=== PATIENT | female | born 1940 | race Two or more races ===

== ENCOUNTER 2022-09-06 22:08 | Inpatient (IN) | payer MEDICARE, OTHER ==
[~2022-09-06] VITALS: Ht 157.5 cm; Wt 85.3 kg
--- NOTE | 2022-09-06 22:25 | NUR ---
[id number] DUE TO DIZZINESS X3DAYS, BEEN TAKING LAXATIVES, BP IN 200s AT HOME. 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 PER EMS, APPEARED TO BE INDUCING VOMITING STONE PROCESSING MACHINE OPERATOR AND ON ARRIVAL TO ED. PT ASSISTED BY RN TO AMBULATE TO RESTROOM SHE STATED SHE HAD SOILED HERSELF DUE TO VOMITING. PLACED IN BED COMFORTABLY, VITALS CHECKED.
[2022-09-06] MEDS ORDERED: ONDANSETRON HCL/PF 4 MG/2 ML VIAL IVP ONE (22:30)
[2022-09-06] MEDS ORDERED: IV NS 0.9% 1,000 ML BAG IV ONE (22:30)
[2022-09-06] MEDS ORDERED: ONDANSETRON HCL/PF 4 MG/2 ML VIAL ONE (23:04)
--- NOTE | 2022-09-06 23:09 | NUR ---
20G IV STARTED ON L WRIST. BLOOD COLLECTED AND SENT TO LAB
[2022-09-06 23:16] LABS: BASOPHILS # (AUTO) 0.1 K/uL (0.0-0.2); BASOPHILS % (AUTO) 0.8 % (0.0-2.0); EOSINOPHILS % (AUTO) 2.5 % (0.0-6.0); HEMATOCRIT 32 % (33-45); HEMOGLOBIN 10.4 g/dL (11.5-14.8); LYMPHOCYTES # (AUTO) 2.1 K/uL (0.8-4.8); LYMPHOCYTES % (AUTO) 20.3 % (20.0-44.0); MEAN CORPUSCULAR HGB CONC 33 g/dl (31.0-36.0); MEAN CORPUSCULAR VOLUME 84 fL (82-100); MONOCYTES # (AUTO) 0.8 K/uL (0.1-1.30); MONOCYTES % (AUTO) 7.6 % (2.0-12.0); NEUTROPHILS % (AUTO) 68.8 % (43.0-81.0); PLATELET COUNT (AUTO) 327 K/uL (150-450); RED BLOOD CELL COUNT(AUTO) 3.82 MIL/uL (4.0-5.2); WHITE BLOOD COUNT (AUTO) 10.2 K/uL (4.3-11.0)
--- NOTE | 2022-09-06 23:18 | NUR ---
PT UNABLE TO PROVIDE URINE SAMPLE AT THIS TIME. PT AXO3. PROVIDED URINE CUP AND TOLD HER TO NOTIFY STAFF IF SHE NEEDS TO URINATE.
--- NOTE | 2022-09-06 23:23 | NUR ---
PT TAKEN TO CT
[2022-09-06 23:29] LABS: CALCIUM, SERUM 8.8 mg/dL (8.5-10.1); CARBON DIOXIDE 21 mmol/L (21-32); CHLORIDE 93 mmol/L (98-107); CREATININE 0.9 mg/dL (0.6-1.3); GLUCOSE 177 mg/dL (74-106); POTASSIUM 4.7 mmol/L (3.5-5.1); SODIUM SERUM 123 mmol/L (136-145); UREA NITROGEN, BLOOD 12 mg/dL (7-18)
--- NOTE | 2022-09-06 23:33 | NUR ---
PT RETURNED FROM CT
[2022-09-06 23:34] LABS: ALANINE AMINOTRANSFERASE 20 U/L (12-78); ALBUMIN 3.3 g/dL (3.4-5.0); ALKALINE PHOSPHATASE 62 U/L (46-116); ASPARTATE AMINOTRANSFERASE 18 U/L (15-37); BILIRUBIN,DIRECT 0.1 mg/dL (0.0-0.2); BILIRUBIN,TOTAL 0.3 mg/dL (0.2-1.0); TOTAL PROTEIN, SERUM 7.1 g/dL (6.4-8.2)
--- NOTE | 2022-09-07 00:19 | NUR ---
URINE COLLECTED SENT TO LAB
[2022-09-07 01:18] LABS: BACTERIA,URINE Rare /HPF (None Seen); BILIRUBIN,URINE NEGATIVE (NEGATIVE); COLOR,URINE YELLOW (YELLOW); LEUKOCYTE ESTERASE ,URINE TRACE (NEGATIVE); NITRITE, URINE NEGATIVE (NEGATIVE); PROTEIN,URINE NEGATIVE (NEGATIVE); SQUAMOUS EPITHELIAL CELL,UR Few /HPF (None Seen); UGLUCOSE 1+ mg/dL (NEGATIVE); UROBILINOGEN,URINE 0.2 EU/dL (0.2)
[2022-09-07] MEDS ORDERED: ONDANSETRON HCL/PF 4 MG/2 ML VIAL IV ONE (01:30)
[2022-09-07] MEDS ORDERED: ONDANSETRON HCL/PF 4 MG/2 ML VIAL ONE (01:30)
--- NOTE | 2022-09-07 01:43 | NUR ---
CALLED [facility] FOR CHEST X-RAY RESULTS READ. THEY STATED IT WILL "TAKE A COUPLE MORE HOURS" WITH NO ETA
--- NOTE | 2022-09-07 02:14 | NUR ---
[facility] PAGED
[2022-09-07] MEDS ORDERED: CEFTRIAXONE 1GM BAG (ER ONLY) 50 ML IV ONE (02:20)
[2022-09-07] MEDS ORDERED: AZITHROMYCIN 500 MG in IV D5W 250 ML IV ONE (02:30)
[2022-09-07] MEDS ORDERED: CEFTRIAXONE 1GM BAG (ER ONLY) 1 GM/50 ML PIGGYBACK IV ONE (02:30)
[2022-09-07] MEDS ORDERED: DEXTROSE 50%-WATER 50 ML DISP.SYRIN IV PRN (02:30)
[2022-09-07] MEDS ORDERED: ONDANSETRON HCL/PF 4 MG/2 ML VIAL IVP PRN ×2 (02:30→10:30)
--- NOTE | 2022-09-07 02:34 | NUR ---
MOVE SHEET SUBMITTED
[2022-09-07] MEDS ORDERED: AZITHROMYCIN 500 MG VIAL ONE (03:20)
--- NOTE | 2022-09-07 04:10 | NUR ---
REPORT GIVEN TO MARYBEL RN, 3W
--- NOTE | 2022-09-07 04:25 | NUR ---
PT TRANSFERRING TO [facility] VIA ACLS PROTOCOL. VSS. ALL BELONGINGS WITH PT.
--- NOTE | 2022-09-07 05:04 | NUR ---
TRUCK LOADER NOTE PATIENT RECEIVED FROM ER [facility]IA [facility]. VS WNL. A/OX4. NO S/S OF DISTRESS, BREATHING WITHOUT DIFFICULTY ON ROOM AIR. L-WRIST #20 INTACT AND PATENT. PATIENT HAD COMPLAINED OF SEVERE NAUSEA. ZOFRAN ADMINISTERED. NO SKIN ISSUES NOTED. PATIENT WAS ORIENTED TO THE UNIT. PATIENT GIVEN CALL [facility] AND INSTRUCTED ON ITS USE. PATIENT'S BELONGINGS ACCOUNTED FOR, LOGGED INTO SHEET, AND PLACED IN CHART. SAFETY MEASURES IN PLACE: BED LOCKED AND AT LOWEST POSITION, RAILS UP X2, CALL MCK[facility] WITHIN REACH. WILL CONTINUE TO MONITOR PATIENT. Addendum: 09/07/22 at 0507 by MARYBEL VIRK RN TIME OF NOTE (CORRECTION): [id number]
--- NOTE | 2022-09-07 05:15 | NUR ---
RN NOTE ON-CALL, PALLAVI, CONTACTED REGARDING * NORMAL SALINE ORDER * PATIENT REQUESTS TO BE DNR AWAITING ORDERS.
[2022-09-07 05:25] VITALS: BP 157/72
[2022-09-07] MEDS: INSULIN REGULAR, HUMAN 100 UNIT/ML 3 ML VIAL SQ PRN ×4 (06:30→21:48)
[2022-09-07] MEDS: BLOOD SUGAR DIAGNOSTIC 1 EACH STRIP IN SCH ×4 (06:30→21:47)
--- NOTE | 2022-09-07 06:48 | NUR ---
RN CLOSING NOTE PATIENT ASLEEP IN BED. A/OX4. NO S/S OF DISTRESS, BREATHING WITHOUT DIFFICULTY ON ROOM AIR. L-WRIST #20 SL INTACT AND PATENT. SAFETY MEASURES IN PLACE: BED LOCKED AND AT LOWEST POSITION, RAILS UP X2, CALL MCKINLEY WITHIN REACH. WILL ENDORSE TO NEXT SHIFT FOR RACQUEL.
--- NOTE | 2022-09-07 07:00 | NUR ---
MS RN OPENING NOTES: RECEIVED PT IN BED ASLEEP. EASILY AROUSED WITH STIMULI ALERT AND ORIENTED X 4.ABLE TO MAKE NEEDS KNOWN. NO SOB OR CARDIAC DISTRESS NOTED. IV ACCESS ON LEFT WRIST,PATENT,INTACT AND SALINE LOCKED. SAFETY MEASURES MAINTAINED: BED LOCKED AND IN LOWEST POSITION SIDERAILS UP X2 CALL LIGHT IN EASY REACH AND WILL MONITOR PT ACCORDINGLY.
[2022-09-07] MEDS ORDERED: ALPR0.5T PO (07:04)
[2022-09-07] MEDS ORDERED: METF-440 PO (07:04)
[2022-09-07] MEDS ORDERED: AMIT50TA3 PO (07:04)
[2022-09-07] MEDS ORDERED: BENA40TA8 PO (07:04)
[2022-09-07] MEDS ORDERED: LEVO100T9 PO (07:04)
[2022-09-07] MEDS: PANTOPRAZOLE 40 MG TABLET.DR PO SCH (07:30)
[2022-09-07 08:00] VITALS: BP 130/80
[2022-09-07] MEDS: ACETAMINOPHEN 325 MG TABLET PO PRN ×3 (08:30→20:09)
[2022-09-07] MEDS: ENOXAPARIN SODIUM 40 MG/0.4 ML DISP.SYRIN SQ SCH (08:31)
[2022-09-07] MEDS ORDERED: ALPRAZOLAM 0.5 MG TABLET PO PRN (09:30)
[2022-09-07] MEDS: IV NS 0.9% 1,000 ML IV SCH ×2 (10:23→21:56)
--- NOTE | 2022-09-07 10:26 | NUR ---
PT COMPLAINED NAUSEA: ZOFRAN GIVEN IV .
[2022-09-07 10:55] LABS: ALANINE AMINOTRANSFERASE 20 U/L (12-78); ALBUMIN 3.6 g/dL (3.4-5.0); ALKALINE PHOSPHATASE 66 U/L (46-116); ASPARTATE AMINOTRANSFERASE 20 U/L (15-37); BILIRUBIN,TOTAL 0.4 mg/dL (0.2-1.0); CALCIUM, SERUM 9.3 mg/dL (8.5-10.1); CARBON DIOXIDE 23 mmol/L (21-32); CHLORIDE 97 mmol/L (98-107); GLUCOSE 114 mg/dL (74-106); POTASSIUM 5.1 mmol/L (3.5-5.1); SODIUM SERUM 131 mmol/L (136-145); UREA NITROGEN, BLOOD 8 mg/dL (7-18)
[2022-09-07 11:13] LABS: BASOPHILS % (AUTO) 0.3 % (0.0-2.0); EOSINOPHILS % (AUTO) 0.6 % (0.0-6.0); HEMATOCRIT 40 % (33-45); HEMOGLOBIN 13.1 g/dL (11.5-14.8); LYMPHOCYTES # (AUTO) 1.6 K/uL (0.8-4.8); LYMPHOCYTES % (AUTO) 17.5 % (20.0-44.0); MEAN CORPUSCULAR HGB CONC 33 g/dl (31.0-36.0); MEAN CORPUSCULAR VOLUME 84 fL (82-100); MONOCYTES # (AUTO) 0.6 K/uL (0.1-1.30); MONOCYTES % (AUTO) 6.5 % (2.0-12.0); NEUTROPHILS % (AUTO) 75.1 % (43.0-81.0); PLATELET COUNT (AUTO) 356 K/uL (150-450); RED BLOOD CELL COUNT(AUTO) 4.73 MIL/uL (4.0-5.2); WHITE BLOOD COUNT (AUTO) 9.3 K/uL (4.3-11.0)
[2022-09-07] MEDS: CEFTRIAXONE 1 G in IV D5W 50 ML IV SCH (11:28)
[2022-09-07 15:55] VITALS: BP 115/58
[2022-09-07] MEDS ORDERED: AMITRIPTYLINE HCL 25 MG TABLET PO SCH ×2 (18:00→22:00)
--- NOTE | 2022-09-07 18:38 | NUR ---
RN NOTES: URINE SPECIMEN COLLECTED ELIZABETH COREY (LAB) FOR FINISH MOLDER.
--- NOTE | 2022-09-07 18:38 | NUR ---
MS RN CLOSING NOTES: PT IN BED AWAKE, ALERT AND ORIENTED X 4 AND ABLE TO MAKE NEEDS KNOWN. NO SOB OR CARDIAC DISTRESS NOTED, ON STAND BY O2 INHALATION 2LPM VIA NC. PT DENIES PAIN AT THIS TIME. IV ACCESS ON LEFT HAND WRIST GAUGE 20 PATENT INTACT AND INFUSING NS 1L @ 90ML/HR. DUE AND AVAILABLE MEDS GIVEN ORDERED AND TOLERATED WELL. SAFETY MEASURES MAINTAINED: BED LOCKED AND IN LOWEST POSITION SIDE RAILS UP X 2. CALL LIGHT IN EASY REACH AND WILL ENDORSE TO MECHANIC AND WELDER RN FOR CONTINUITY OF CARE.
--- NOTE | 2022-09-07 19:30 | NUR ---
MS RN OPENING NOTES RECEIVED PT AWAKE IN BED, WATCHING TV AT THIS TIME. A/O X4, ABLE TO MAKE NEEDS KNOWN. NO SOB OR CARDIAC DISTRESS NOTED, ON O2 2LPM VIA NC. C/O HEADACHE, REQUESTING TYLENOL, VERBALIZED THAT IT WILL GIVEN WHEN DUE, PT VERBALIZED UNDERSTANDING. IV ACCESS ON LEFT HAND WRIST GAUGE 20 PATENT INTACT AND INFUSING NS 1L @ 90ML/HR. SAFETY MEASURES IN PLACE: BED LOCKED AND IN LOWEST POSITION, SIDE RAILS UP X2, CALL LIGHT AND TRAY TABLE WITHIN EASY REACH. WILL CONTINUE TO MONITOR AND ASSIST.
[2022-09-07 19:33] LABS: BILIRUBIN,URINE NEGATIVE (NEGATIVE); COLOR,URINE YELLOW (YELLOW); LEUKOCYTE ESTERASE ,URINE NEGATIVE (NEGATIVE); NITRITE, URINE NEGATIVE (NEGATIVE); PH,URINE 6.5 (5.0-8.0); PROTEIN,URINE NEGATIVE (NEGATIVE); UGLUCOSE 1+ mg/dL (NEGATIVE); UROBILINOGEN,URINE 0.2 EU/dL (0.2)
[2022-09-07 20:00] VITALS: BP 134/77
--- NOTE | 2022-09-07 21:45 | NUR ---
RN NOTE: PT REQUESTED XANAX TO HELP HER SLEEP. PT STATES THAT SHE'S TAKEN IT EVERY NIGHT FOR PAST 35 YEARS TO HELP WITH HER INSOMNIA.
[2022-09-08] MEDS: ACETAMINOPHEN 325 MG TABLET PO PRN (03:57)
--- NOTE | 2022-09-08 03:57 | NUR ---
RN NOTE: PT C/O HEADACHE AND REQUESTING TYLENOL. WILL GIVE MED PRESCRIBED.
[2022-09-08 05:53] LABS: BASOPHILS % (AUTO) 0.6 % (0.0-2.0); EOSINOPHILS % (AUTO) 3.4 % (0.0-6.0); HEMATOCRIT 34 % (33-45); HEMOGLOBIN 11.1 g/dL (11.5-14.8); LYMPHOCYTES # (AUTO) 2.3 K/uL (0.8-4.8); LYMPHOCYTES % (AUTO) 32.1 % (20.0-44.0); MEAN CORPUSCULAR HGB CONC 33 g/dl (31.0-36.0); MEAN CORPUSCULAR VOLUME 83 fL (82-100); MONOCYTES # (AUTO) 0.6 K/uL (0.1-1.30); MONOCYTES % (AUTO) 8.5 % (2.0-12.0); NEUTROPHILS % (AUTO) 55.4 % (43.0-81.0); PLATELET COUNT (AUTO) 339 K/uL (150-450); RED BLOOD CELL COUNT(AUTO) 4.07 MIL/uL (4.0-5.2); WHITE BLOOD COUNT (AUTO) 7.2 K/uL (4.3-11.0)
[2022-09-08 06:11] LABS: CREATININE 1.1 mg/dL (0.6-1.3); MAGNESIUM 1.8 mg/dL (1.8-2.4); PHOSPHORUS 3.6 mg/dL (2.5-4.9); POTASSIUM 4.4 mmol/L (3.5-5.1)
[2022-09-08] MEDS: BLOOD SUGAR DIAGNOSTIC 1 EACH STRIP IN SCH (06:36)
[2022-09-08] MEDS: INSULIN REGULAR, HUMAN 100 UNIT/ML 3 ML VIAL SQ PRN (06:37)
--- NOTE | 2022-09-08 06:41 | NUR ---
MS RN CLOSING NOTES PT RESTING IN BED, EASILY AROUSABLE. A/O X4, ABLE TO MAKE NEEDS KNOWN. NO SOB OR CARDIAC DISTRESS NOTED, STABLE ON RA, USED 2L VIA NC PRN LAST NIGHT. DENIES PAIN AT THIS TIME. IV ACCESS ON LEFT HAND WRIST GAUGE 20 PATENT INTACT AND INFUSING NS @ 90ML/HR. ALL CARE PROVIDED AND MEDS TOLERATED WELL. SAFETY MEASURES MAINTAINED: BED LOCKED AND IN LOWEST POSITION, SIDE RAILS UP X2, CALL LIGHT AND TRAY TABLE WITHIN EASY REACH. WILL ENDORSE RACQUEL TO DAY SHIFT NURSE.
[2022-09-08 07:00] VITALS: BP 150/62
--- NOTE | 2022-09-08 07:00 | NUR ---
MS RN OPENING NOTES: PT IN BED ASLEEP EASILY AROUSED WITH STIMULI, ALERT AND ORIENTED X 4 AND ABLE TO MAKE NEEDS KNOWN. NO SOB OR CARDIAC DISTRESS NOTED, ON STAND BY O2 INHALATION 2LPM VIA NC. PT DENIES PAIN AT THIS TIME. IV ACCESS ON LEFT HAND WRIST GAUGE 20 PATENT INTACT AND INFUSING NS 1L @ 90ML/HR. SAFETY MEASURES MAINTAINED: BED LOCKED AND IN LOWEST POSITION SIDE RAILS UP X 2. CALL LIGHT IN EASY REACH AND WILL MONITOR PT ACCORDINGLY.
[2022-09-08] MEDS: PANTOPRAZOLE 40 MG TABLET.DR PO SCH (07:29)
[2022-09-08] MEDS ORDERED: LEVOTHYROXINE SODIUM 100 MCG TABLET PO SCH ×2 (07:30→09:00)
[2022-09-08 08:09] VITALS: BP 150/62
[2022-09-08] MEDS: IV NS 0.9% 1,000 ML IV SCH (08:11)
[2022-09-08] MEDS: ENOXAPARIN SODIUM 40 MG/0.4 ML DISP.SYRIN SQ SCH (08:11)
[2022-09-08] MEDS ORDERED: BENAZEPRIL HCL 20 MG TABLET PO SCH (09:00)
[2022-09-08] MEDS ORDERED: POLY17PO4 PO (10:33)
[2022-09-08] MEDS ORDERED: DOCU-141 PO (10:33)
[2022-09-08] MEDS: CEFTRIAXONE 1 G in IV D5W 50 ML IV SCH (11:04)
--- NOTE | 2022-09-08 11:55 | NUR ---
SUPERVISOR LINE DEPARTMENT NOTES: PATIENT DC TO HOME ACCOMPANIED BY SON.NO SOB OR CARDIAC DISTRESS NOTED. DENIES PAIN AT THIS TIME. DISCHARGE PACKET AND DC INSTRUCTIONS GIVEN TO PATIENT AND VERBALIZED UNDERSTANDING. PER PT SHE'S MUCH BETTER TODAY. IV ACCESS REMOVED AND SECURED WITH GAUZE AND TAPE. IDENTIFICATION BAND REMOVED. DENTURES IS WITH THE PT AND NO OTHER BELONGINGS/CLOTHES WITH THE PT PER SON HE BROUGHT EVERYTHING HOME. PT LEFT THE UNIT STABLE AND ASSISTED BY ROB SAAVEDRA.
== END 2022-09-08 12:53 | disposition home or self-care (01) | DRG 641 ==
LOC: ER 22:09 → TELE 09-07 03:28 → MED 09-07 04:42
PROVIDERS: ADMIT Internal Medicine; ATTEND Internal Medicine
DX: E86.0 Dehydration (principal); E87.1 Hypo-osmolality and hyponatremia; R19.7 Diarrhea, unspecified; I10 Essential (primary) hypertension; Z79.899 Other long term (current) drug therapy; E11.9 Type 2 diabetes mellitus without complications; Z79.84 Long term (current) use of oral hypoglycemic drugs; Z85.07 Personal history of malignant neoplasm of pancreas; E03.9 Hypothyroidism, unspecified; K59.00 Constipation, unspecified; Z88.1 Allergy status to other antibiotic agents
CPT/HCPCS: 36415; 70450-TC; 71045-TC; 80048-TC; 80053-TC; 80061-TC; 80076-TC; 81001; 82962-TC; 83605-TC; 83735-TC; 84100-TC; 84295-TC; 84300-TC; 84484-TC; 85025-TC; 85730-TC; 87040-TC; 87081-TC; A4223; G0378; J0456; J0696; J1650; J1815; J2405; J7030; J7060